=== PATIENT | female | born 1980 | race Hispanic/Latino ===

== ENCOUNTER 2019-11-15 13:46 | Emergency (ER) | payer OTHER, SELFPAY ==
[2019-11-16 14:00] LABS: SARS-CoV-2 MS2 Positive; SARS-CoV-2 N Gene Positive; SARS-CoV-2 S Gene Positive; SARS-CoV-2 orf1ab Positive
== END 2019-11-15 14:15 | disposition home or self-care (01) ==
LOC: ERS 13:46
DX: U07.1 COVID-19 (principal); R11.2 Nausea with vomiting, unspecified; E11.9 Type 2 diabetes mellitus without complications
CPT/HCPCS: 87635; 99283; U0003